=== PATIENT | female | born 1985 | race Caucasian/White ===

== ENCOUNTER 2016-06-03 05:41 | Outpatient (CLI) | payer OTHER ==
[~2016-06-03] VITALS: Ht 160 cm; Wt 62.6 kg
[~2016-06-03 05:41] MED LIST: B12/1TAB PO; CALC-794 PO; DCS100C PO; FOLI0.4T2 PO; HYDR-3720 PO; IBP800T PO; PREN-98 PO; SMT80CT PO; [UNRECOGNIZED DRUG - CODE] PO
[2016-06-03] MEDS ORDERED: birth control pill PO (13:04)
[2016-06-03] MEDS ORDERED: MULT-178 PO (13:06)
[2016-06-07] MEDS ORDERED: OXYC-202 PO (13:02)
== END 2016-06-03 13:13 ==
LOC: PREOP 05:41
PROVIDERS: ATTEND Obstetrics & Gynecology
DX: Z01.818 Encounter for other preprocedural examination (principal); N93.8 Other specified abnormal uterine and vaginal bleeding; D64.9 Anemia, unspecified

== ENCOUNTER 2016-06-07 11:06 | Day surgery (SDC) | payer OTHER ==
[~2016-06-07] VITALS: Ht 160 cm; Wt 62.6 kg
[~2016-06-07 11:06] MED LIST changes: +MULT-178 PO; +birth control pill PO
--- OUTSIDE RECORDS SUMMARY | 2016-06-07 11:09 | XMS REPORT | Continuity of Care Document ---
Author Author [facility] Organization 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 Medications Current Home Medications Medication Dose Units Route Directions Days/Qty Instructions Start Date Calcium Carb & Cit/Vitamin D3 1 Each 1 Each Oral Daily 06/30/13 B12/Levomefolate Calcium/B-6 1 Each 1 Each Oral Daily 06/30/13 [ Control Pill] 1 Tab Oral Daily 06/03/16 Multivitamin 1 Each 1 Each Oral Daily 06/03/16 Past Home Medications Medication Directions Ordered Status Vit37/Iron/Folic Acid 1 Each Tab.chew, 1 Each Oral Daily 06/30/13 Discontinued Folic Acid 0.4 Mg Tablet, 1000 Mcg Oral Daily 06/30/13 Discontinued Terbutaline Sulfate 2.5 Mg Tab, 2.5 Mg Oral Give Every 4 Hrs On Schedule Discontinued Docusate Sodium 100 Mg Capsule, 1 Cap Oral Daily as needed for Constipation 07/17/13 Discontinued Acetaminophen/Hydrocodone Bitart ([place]) 1 Each Tablet, 1-2 Tab Oral Every 3 Hours as needed for Pain 07/17/13 Discontinued Ibuprofen 800 Mg Tablet, 1 Tab Oral Every 6 Hours as needed for Pain Discontinued Simethicone 80 Mg Chew, 80 Mg Oral Three Times A Day for Gas 07/19/13 Discontinued Social History Social History Problem Response Recorded Date/Time Alcohol Use Denies Use 07/16/2013 3:30pm Recreational Drug Use No 07/16/2013 3:30pm Recent Foreign Travel No 07/16/2013 3:30pm Recent Infectious Disease Exposure No 07/16/2013 3:30pm Hospitalization with Isolation Denies 07/20/2013 1:16am Sexually Transmitted Disease No 06/03/2016 1:01pm HIV/AIDS No 06/03/2016 1:01pm Smoking Status Former Smoker 06/03/2016 1:01pm Recent Hopitalizations No 06/03/2016 1:01pm Sexually Transmitted Disease No 06/03/2016 1:01pm Hospitalization with Isolation Denies 07/20/2013 1:16am Query Response Start Date Stop Date Smoking Status Former Smoker Hospital Discharge Instructions No hospital discharge instructions. Plan of Care Discharge Date 06/03/16 1:13pm Prescriptions See Medication Section Functional Status No functional status results. Allergies, Adverse Reactions, Alerts No known allergies. Immunizations No immunization records. Vital Signs Acute Vital Signs Vital Response Date/Time Height (Feet) 5 feet 06/03/2016 12:59pm Height (Inches) 3.00 inches 06/03/2016 12:59pm Height (Calculated Centimeters) 160.686152 cm 06/03/2016 12:59pm Weight (Pounds) 138 pounds 06/03/2016 12:59pm Weight (Ounces) 0.0 oz 06/03/2016 12:59pm Weight (Calculated Grams) 93482.75 gm 06/03/2016 12:59pm Weight (Calculated Kilograms) 62.957727 kilograms 06/03/2016 12:59pm Calculated BMI 24.5 06/03/2016 12:59pm Results No known relevant diagnostic tests, laboratory data and/or discharge summary. Procedures No known history of procedures. Encounters Encounter Location Arrival/Admit Date Discharge/Depart Date Attending Provider Departed Clinic [facility] 06/03/16 5:41am 06/03/16 1: 13pm ALBERT GONZALEZ MD
--- OUTSIDE RECORDS SUMMARY | 2016-06-07 11:10 | XMS REPORT | Continuity of Care Document ---
Author Author [facility] Organization [facility] Address Unknown Phone Unavailable Care Team Providers Care Postie Name Role Phone NITA JANSNE MD PCP Insurance Providers Payer Name Policy Number Subscriber Name Relationship [facility] [id number] Misty Dawson Self / Same As Patient [...] needed for Constipation 07/17/13 Discontinued Acetaminophen/Hydrocodone Bitart ([place]) 1 Each Tablet, 1-2 Tab Oral Every [...] 3.00 inches 06/03/2016 12:59pm Height (Calculated Centimeters) 160.585764 cm 06/03/2016 12:59pm Weight (Pounds) 138 pounds 06/03/2016 12:59pm Weight (Ounces) 0.0 oz 06/03/2016 12:59pm Weight (Calculated Grams) 01451.75 gm 06/03/2016 12:59pm Weight (Calculated Kilograms) 62.181086 kilograms 06/03/2016 12:59pm Calculated BMI 24.5 06/03/2016 12:59pm Results No known relevant diagnostic tests, laboratory data and/or discharge summary. Procedures No known history of procedures. Encounters Encounter Location Arrival/Admit Date Discharge/Depart Date Attending Provider Departed Clinic [facility] 06/03/16 5:41am 06/03/16 1: 13pm ALBERT GONZALEZ MD
[2016-06-07] MEDS ORDERED: ceFAZolin 1 GM/NS 50 ML IVPB IV ONE ×2 (11:30)
[2016-06-07] MEDS ORDERED: LACTATED RINGERS 1,000 ML IV PRN (11:41)
[2016-06-07] MEDS ORDERED: MIDAZOLAM 2 MG/2 ML (VERSED) VIAL IV ONE (11:45)
[2016-06-07 12:07] LABS: BASOPHILS # (AUTO) 0.1 10^3/uL (0.0-0.1); BASOPHILS % (AUTO) 1 % (0-10); EOSINOPHILS % (AUTO) 0 % (0-10); LYMPHOCYTES # (AUTO) 3.4 X 10^3 (1.0-4.0); LYMPHOCYTES % (AUTO) 37 % (12-44); MEAN CORPUSCULAR HEMOGLOBIN 30 PG (25-34); MEAN CORPUSCULAR HGB CONC 33 G/DL (32-36); MEAN CORPUSCULAR VOLUME 90 FL (80-99); MEAN PLATELET VOLUME 10.1 FL (7.4-10.4); MONOCYTES # (AUTO) 0.5 X 10^3 (0.0-1.0); MONOCYTES % (AUTO) 5 % (0-12); NEUTROPHILS # (AUTO) 5.3 X 10^3 (1.8-7.8); NEUTROPHILS % (AUTO) 58 % (42-75); PLATELET COUNT 268 10^3/uL (130-400); WHITE BLOOD COUNT 9.3 10^3/uL (4.3-11.0)
[2016-06-07] MEDS ORDERED: ONDANSETRON 4 MG/2 ML (SDV) Z0FRAN ONE (12:16)
[2016-06-07] MEDS ORDERED: LACTATED RINGERS 1,000 ML IV ONE (12:16)
[2016-06-07] MEDS ORDERED: LIDOCAINE PF 2% 10 ML (XYLOCAINE) AMP ONE (12:16)
[2016-06-07] MEDS ORDERED: proPOfol 200 MG/20 ML (DIPRIVAN) VIAL IV ONE (12:16)
[2016-06-07] MEDS ORDERED: fentaNYL INJECTION 100 MCG/2 ML AMP ONE (12:17)
[2016-06-07] MEDS ORDERED: MIDAZOLAM 2 MG/2 ML (VERSED) VIAL ONE (12:17)
[2016-06-07] MEDS ORDERED: SEVOFLURANE (ULTANE) 15 ML INHAL SOLN ONE ×2 (12:19→13:32)
[2016-06-07] MEDS ORDERED: ESTROGENS CONJ IV 25 MG/5 ML (PREMARIN) VIAL IVP ONE (13:00)
[2016-06-07] MEDS ORDERED: PROMETHAZINE INJ 25 MG/ML (PHENERGAN) AMP IM ONE (13:00)
[2016-06-07] MEDS ORDERED: ONDANSETRON 4 MG/2 ML (SDV) Z0FRAN IVP PRN ×2 (13:00→14:00)
[2016-06-07] MEDS ORDERED: D5 LR IV SOLUTION 1,000 ML IV SCH (13:00)
[2016-06-07] MEDS ORDERED: MEPERIDINE (DEMEROL) INJ 100 MG/ML IM ONE (13:00)
[2016-06-07] MEDS ORDERED: oxyCODONE/APAP 10/325MG (PERCOCET 10) TABLET PO PRN (13:00)
[2016-06-07] MEDS ORDERED: KETOROLAC 30 MG/ML VIAL IVP ONE (13:00)
--- NOTE | 2016-06-07 13:00 | Progress Note-Pre Operative ---
Pre-Operative Progress Note H&P Reviewed The H&P was reviewed, patient examined and no changes noted. Date H&P Reviewed: Jun 07, 2016 Time H&P Reviewed: 13:00 Pre-Operative Diagnosis: dysfunctional uterine bleeding/intrauterine mass ALBERT GONZALEZ MD Jun 07, 2016 1:00 pm
[2016-06-07] MEDS ORDERED: OXYC-202 PO (13:02)
--- NOTE | 2016-06-07 13:04 | Discharge Instructions ---
Discharge Instructions Discharge Medications New, Converted or Re-Newed RX: RX on Chart Patient Instructions Patient Instructions: as directed Return to The Hospital For: as directed Activity & Diet Discharge Diet: No Restrictions Activity as Tolerated: Yes Orders-Post D/C & Referrals Follow Up Appt: Call to make follow up appt. for patient in 2 weeks. Activity: Rest for 24 hours, than as tolerated. Diet: As tolerated-Clear Liquids only if nauseated. May shower or tub bathe as desired. No driving for 24 hours, no alcoholic beverages for 24 hours, and nothing per vagina (no tampons, douching, or intercourse) for 2 weeks. Patient to return to the clinic as soon as possible for: Temperature greater than 101F, Severe Pain, Foul discharge from incision or vagina, Excessive Bleeding (more than a period). ALBERT GONZALEZ MD Jun 07, 2016 1:04 pm
[2016-06-07] MEDS ORDERED: ESTROGENS CONJ IV 25 MG/5 ML (PREMARIN) VIAL ONE (13:31)
[2016-06-07] MEDS ORDERED: WATER (STERILE) FOR INJECTION 10 ML ONE (13:31)
[2016-06-07] MEDS ORDERED: KETOROLAC 30 MG/ML VIAL ONE (13:31)
[2016-06-07] MEDS ORDERED: morphine INJ 10 MG/ML 1ML (SYR OR VIAL) ONE (13:32)
[2016-06-07] MEDS ORDERED: morphine INJ 10 MG/ML 1ML (SYR OR VIAL) IVP PRN (14:00)
[2016-06-07] MEDS ORDERED: HYDROmorphone (DILAUDID) 2 MG/ML VIAL IVP PRN (14:00)
[2016-06-07] MEDS ORDERED: MEPERIDINE (DEMEROL) INJ 50 MG/ML IVP PRN (14:00)
[2016-06-07] MEDS ORDERED: PROMETHAZINE INJ 25 MG/ML (PHENERGAN) AMP IVP PRN (14:00)
[2016-06-07 14:25] VITALS: BP 123/69
[2016-06-07 15:00] VITALS: BP 119/62
[2016-06-07 15:30] VITALS: BP 120/61
[2016-06-07 15:50] VITALS: BP 120/61
--- NOTE | 2016-06-10 11:01 | OPERATIVE REPORT ---
PROCEDURE PHYSICIAN: ALBERT GONZALEZ DATE OF PROCEDURE: 06/07/2016 PREOPERATIVE DIAGNOSES: 1. Dysfunctional uterine bleeding. 2. Intrauterine mass. POSTOPERATIVE DIAGNOSES: 1. Dysfunctional uterine bleeding. 2. Intrauterine mass. 3. Pathology pending. OPERATIVE PROCEDURE: Hysteroscopically directed intrauterine biopsy with D&C. OPERATIVE DESCRIPTION: With the patient in the supine position, under satisfactory general anesthesia, she was repositioned in dorsal lithotomy position in the Ace stirrups and prepped and draped usual fashion for vaginal surgery. The urinary bladder was emptied via straight catheter. Weighted speculum was placed in posterior fornix of the vagina. Cervix exposed and grasped anteriorly with single-tooth tenaculum. The uterus was sounded to 9.5 cm of uterine sound. The cervix was then serially dilated with Kvng dilators to accommodate a hysteroscope, which was introduced and using LR as a distending medium, the endometrial cavity was examined. There was a polypoid strip of tissue emanating from just distal to the right tubal ostium. There was a fleshy appearing mass in the uterine cavity that was removed intact. This almost appeared to have mucoid appearance versus solid tissue but that was sent to pathology separately. The strip of polypoid tissue was biopsied directly off from the right side of the endometrial cavity. This was sent separately. The endometrial cavity was then sharply curettaged in all 4 quadrants to a good uterine cry. That tissue was sent to pathology separately as endometrial curettings. The hysteroscope was reintroduced, the endometrial cavity examined. There was no significant bleeding. There was no remaining abnormal pathology. Both tubal ostia had been seen and were normal appearing and patent. The midportion of the fundus of the uterine cavity appear that there may have been a submucosal fibroid. This was biopsied directly taking several bites of tissue from that area. No bleeding was noted and this had a fibrous appearance to that tissue. That tissue was sent as a separate specimen to pathology as well. With the procedure complete, the hysteroscope was removed as was the tenaculum. There was no bleeding from the puncture site. There was no bleeding from the cervical os. Sponge and needle counts were correct at this point. Estimated blood loss was minimal. A total of 850 mL of LR was used as distending medium, 800 mL was recovered. The patient tolerated the procedure well, and was uneventfully awakened from general anesthesia and transferred to recovery room in stable condition with plans for discharge home PAR. Job ID: [id number] Dictated Date: 06/07/2016 13:36:33 Business Law Teacher Date: 06/10/2016 10:46:22 / cyndie
== END 2016-06-07 15:50 | disposition home or self-care (01) ==
LOC: SDC 11:06
PROVIDERS: ATTEND Obstetrics & Gynecology
DX: N92.0 Excessive and frequent menstruation with regular cycle (principal); N85.9 Noninflammatory disorder of uterus, unspecified
CPT/HCPCS: 36415; 84703; 85025; 87081; 88305

== ENCOUNTER 2019-06-17 16:22 | Inpatient (IN) | payer OTHER ==
[~2019-06-17] VITALS: Ht 160 cm; Wt 66.7 kg
[~2019-06-17 16:22] MED LIST changes: +OXYC1TAB12 PO
[2019-06-17] MEDS ORDERED: PRED10TA22 PO (16:44)
[2019-06-17] MEDS ORDERED: CEFU500T63 PO (16:44)
--- NOTE | 2019-06-17 16:44 | ED EENT ---
History of Present Illness General Chief Complaint: Oral/Throat Problems Stated Complaint: TONSILS SWOLLEN Nursing Triage Note: SENT HERE FROM [facility] OFFICE WITH POSSIBLE ABSCESS ON TONSIL. FLU AND STEP NEG. RECIEVED A STEROID SHOT AND AN ABX SHOT YESTERDAY. Source: patient Exam Limitations: no limitations History of Present Illness Date Seen by Provider: Jun 17, 2019 Time Seen by Provider: 16:39 Initial Comments To ER with tonsillar swelling. She was recently ill with the flu, states that her tonsils always get very large. She had persistent tonsillar enlargement and sore throat, went to Dr. Sweet's office yesterday and received a shot of steroids and antibiotics. She is on azithromycin. She reported minimal improvement, call their office today and was advised to come to the emergency room due to concern for peritonsillar abscess. Timing/Duration: gradual Severity: moderate Location: throat Associated Symptoms: sore throat Allergies and Home Medications Allergies Coded Allergies: No Known Drug Allergies (Unverified , 06/30/13) Home Medications B12/Levomefolate Calcium/B-6 1 Each Tablet, 1 EACH PO DAILY, (Reported) Calcium Carb & Cit/Vitamin D3 1 Each Tablet.er, 1 EACH PO DAILY, (Reported) Cefuroxime Axetil 500 Mg Tablet, 500 MG PO BID Prescribed by: AZRA JACQUES on 06/17/191643 Multivitamin 1 Each Tablet, 1 EACH PO DAILY, (Reported) Oxycodone HCl/Acetaminophen 1 Each Tablet, 1-2 TAB PO Q4H PRN for PAIN Prescribed by: ALBERT GARCIA on 06/07/16 1302 Prednisone 10 Mg Tab.ds.pk, 10 MG PO DAILY Take 6 tabs(60mg)daily,decrease by 1 tab(10MG)daily. Prescribed by: AZRA JACQUES on 06/17/19 1644 [ control pill] , 1 TAB PO DAILY, (Reported) Patient Home Medication List Home Medication List Reviewed: Yes Review of Systems Review of Systems Constitutional: see HPI; No chills, No fever Eyes: No Symptoms Reported Ears: No Symptoms Reported Nose: no symptoms reported Throat: see HPI, swelling, painful swallowing Respiratory: no symptoms reported Cardiovascular: no symptoms reported Musculoskeletal: no symptoms reported Past Gpvpfyc-Djxpyj-Fbvzcs Hx Patient Social History Alcohol Use: Occasionally Uses Alcohol Beverage of Choice: Wine Recreational Drug Use: No Smoking Status: Never a Smoker Former Smoker, Quit: Jun 03, 2004 Recent Foreign Travel: No Contact w/Someone Who Travel: No Recent Infectious Disease Expo: No Recent Hopitalizations: No Physical Abuse: No Sexual Abuse: No Mistreated: No Fear: No Immunizations Up To Date Date of Influenza Vaccine: Feb 02, 2016 Seasonal Allergies Seasonal Allergies: Yes Past Medical History Surgeries: Yes Section Respiratory: No Cardiac: No Neurological: Yes (seizure x1 when 15 yrs old, none since) Seizure Disorder Reproductive Disorders: Yes Female Reproductive Disorders: Denies Sexually Transmitted Disease: No HIV/AIDS: No Gastrointestinal: No Musculoskeletal: No Endocrine: No Loss of Vision: Denies Hearing Impairment: Denies Cancer: No Psychosocial: No Integumentary: No Blood Disorders: No Adverse Reaction/Blood Tranf: No Family Medical History Alcoholism 03 FATHER Headache 03 MOTHER Hearing loss Grandparents (Maternal Grandfather) History of drug abuse 09 SISTER (Previous Meth, Marijuana, Prescription Pills. Clean approx 1 year.) Kidney disease Grandparents (Maternal Grandmother-Dyalisis) Prostate cancer Grandparents (Maternal Grandfather- Prostate or Colon?) Psychotic disorder 03 MOTHER (Depression, Anxiety) 09 SISTER (Anxiety, Depression ) Grandparents (Paternal Grandmother- Anxiety) Stroke Grandparents (Maternal Grandmother-2 or 3 strokes) No Family History of: Abdominal aortic aneurysm [place]'s disease Aphasia Cancer Cancer of colon Cataract Chest pain Congenital heart disease Congestive heart failure Cystic fibrosis Dementia Dysphagia Family history: Allergy Family history: Alzheimer's disease Family history: Arthritis Family history: Asthma Family history: Breast disease Family history: Cardiovascular disease Family history: Coronary thrombosis Family history: Diabetes mellitus Family history: Gastrointestinal disease Family history: Glaucoma Family history: Hypertension Family history: Osteoporosis Family history: Thyroid disorder Heart disease Hereditary disease History of - anemia History of - disorder History of - respiratory disease Human immunodeficiency virus (HIV) seropositivity Hypercholesterolemia Infertile Malignant neoplasm of lung Myocardial infarction Parkinson's disease Seizure disorder Tuberculosis Visual impairment Physical Exam Vital Signs Vital Signs - First Documented 06/17/19 16:29 Temp 36.8 Pulse 101 Resp 16 B/P (MAP) 133/83 (100) Pulse Ox 98 O2 Delivery Room Air Height, Weight, BMI Height: 5'3.00" Weight: 138lbs. 0.0oz. 62.138181du; 26.00 BMI Method: General Appearance: WD/WN, no apparent distress, other (no distress, swallows her own secretions no stridor.) Eyes: bilateral eye normal inspection, bilateral eye PERRL, bilateral eye EOMI Ears: bilateral ear auricle normal, bilateral ear canal normal, bilateral ear TM normal Nose: normal inspection; No active bleeding Mouth/Throat: normal mouth inspection, tonsillar swelling (asymmetric right tonsillar enlargement. There is no evidence of a peritonsillar abscess based on clinical exam, there is no uvular deviation or enlargement or cellulitis of the peritonsillar tissues. There is no exudate on the tonsil itself.), trismus Neck: non-tender, full range of motion Respiratory: no respiratory distress, no accessory muscle use Gastrointestinal: normal bowel sounds, soft Neurologic/Psychiatric: alert, normal mood/affect, oriented x 3 Skin: normal color, warm/dry Progress/Results/Core Measures Results/Orders Lab Results Laboratory Tests Test 06/17/19 16:47 Range/Units White Blood Count 26.6 H 4.3-11.0 10^3/uL Red Blood Count 4.73 4.35-5.85 10^6/uL Hemoglobin 13.5 11.5-16.0 G/DL Hematocrit 41 35-52 % Mean Corpuscular Volume 87 80-99 FL Mean Corpuscular Hemoglobin 29 25-34 PG Mean Corpuscular Hemoglobin Concent 33 32-36 G/DL Red Cell Distribution Width 13.5 10.0-14.5 % Platelet Count 510 H 130-400 10^3/uL Mean Platelet Volume 9.3 7.4-10.4 FL Neutrophils (%) (Auto) 81 H 42-75 % Lymphocytes (%) (Auto) 13 12-44 % Monocytes (%) (Auto) 6 0-12 % Eosinophils (%) (Auto) 0 0-10 % Basophils (%) (Auto) 0 0-10 % Neutrophils # (Auto) 21.5 H 1.8-7.8 X 10^3 Lymphocytes # (Auto) 3.4 1.0-4.0 X 10^3 Monocytes # (Auto) 1.5 H 0.0-1.0 X 10^3 Eosinophils # (Auto) 0.1 0.0-0.3 10^3/uL Basophils # (Auto) 0.0 0.0-0.1 10^3/uL Neutrophils % (Manual) 83 % Lymphocytes % (Manual) 13 % Monocytes % (Manual) 4 % Eosinophils % (Manual) 0 % Basophils % (Manual) 0 % Band Neutrophils 0 % Blood Morphology Comment NORMAL Serum Test, Qualitative NEGATIVE NEGATIVE My Orders Orders - AZRA JACQUES APRN Ed Iv/Invasive Line Start (06/17/19 16:38) Cbc With Automated Diff (06/17/19 16:38) Hcg,Qualitative Serum (06/17/19 16:38) Ct Neck (Soft Tissue) W (06/17/19 16:38) Clindamycin 900 Mg/50 Ml Ivpb (Cleocin P (06/17/19 16:45) Methylprednisolone Sod Succ (Solu-Medrol (06/17/19 16:45) Manual Differential (06/17/19 16:47) Iohexol Injection (Omnipaque 350 Mg/Ml 1 (06/17/19 17:30) Received Contrast (Hold Metformin- Contr (06/17/19 17:30) Sodium Chloride Flush (Catheter Flush Sy (06/17/19 17:30) Medications Given in ED Current Medications Medications Dose Ordered Sig/Shreyas Route Start Time Stop Time Status Last Admin Dose Admin Clindamycin Phosphate/Dextrose 50 ml @ 100 mls/hr ONCE ONCE IV 06/17/19 16:45 06/17/19 17:14 DC 06/17/19 17:08 100 MLS/HR Iohexol 75 ml ONCE ONCE IV 06/17/19 17:30 06/17/19 17:31 DC 06/17/19 17:46 75 ML Methylprednisolone Sodium Succinate 125 mg ONCE ONCE IVP 06/17/19 16:45 06/17/19 16:46 DC 06/17/19 17:08 125 MG Sodium Chloride 10 ml NEEDED PRN IV 06/17/19 17:30 06/17/19 17:46 10 ML Vital Signs/I&O 06/17/19 16:29 Temp 36.8 Pulse 101 Resp 16 B/P (MAP) 133/83 (100) Pulse Ox 98 O2 Delivery Room Air Blood Pressure Mean: 100 Departure Communication (Admissions) Time/Spoke to Admitting Phy: 18:[address] Hickey, he would recommend Decadron and cefuroxime. He could see this patient tomorrow. Spoke with Dr. Kennedy who is the patient's primary care provider, patient does have cats, there was some concern of a cat Scratch disease based on clinical exam which would be supported by the findings. As such I'll continue the azithromycin. We will admit. Impression Primary Impression: lymphadenopathy right neck Disposition: ADMITTED INPATIENT Condition: Stable Admissions Decision to Admit Reason: Admit from ER (General) Decision to Admit/Date: Jun 17, 2019 Time/Decision to Admit Time: 18:18 Departure-Patient Inst. Decision time for Depature: 16:43 Referrals: NITA JANSEN MD (PCP) Primary Care Physician JEFF HICKEY MD Patient Instructions: NO INSTRUCTIONS GIVEN Add. Discharge Instructions: 1. Steroids and antibiotics as directed. You can stop the azithromycin. Call Dr. Hickey's office for an appointment for follow-up. Return to ER for any worsening. If the steroids cause you insomnia, you can take Unisom ejkx-jqh-dusptia or Benadryl. All discharge instructions reviewed with patient and/or family. Voiced understanding. Scripts Prednisone (Prednisone) 10 Mg Tab.ds.pk 10 MG PO DAILY, #21 EA Take 6 tabs(60mg)daily,decrease by 1 tab(10MG)daily. Prov: AZRA JACQUES APRN 06/17/19 Cefuroxime Axetil (Cefuroxime) 500 Mg Tablet 500 MG PO BID, #14 TAB Prov: AZRA JACQUES APRN 06/17/19 Copy Copies To 1: JEFF HICKEY MD, PETER J APRN Jun 17, 2019 16:44
[2019-06-17] MEDS ORDERED: methylPREDNISolone 125 MG (Solu-MEDROL) VIAL IVP ONE (16:45)
[2019-06-17] MEDS ORDERED: CLINDAMYCIN 900 MG/50 ML IVPB 50 ML IV ONE (16:45)
[2019-06-17 16:52] LABS: BASOPHILS % (AUTO) 0 % (0-10); EOSINOPHILS # (AUTO) 0.1 10^3/uL (0.0-0.3); EOSINOPHILS % (AUTO) 0 % (0-10); HEMATOCRIT 41 % (35-52); HEMOGLOBIN 13.5 G/DL (11.5-16.0); LYMPHOCYTES # (AUTO) 3.4 X 10^3 (1.0-4.0); LYMPHOCYTES % (AUTO) 13 % (12-44); MEAN CORPUSCULAR HEMOGLOBIN 29 PG (25-34); MEAN CORPUSCULAR HGB CONC 33 G/DL (32-36); MEAN CORPUSCULAR VOLUME 87 FL (80-99); MEAN PLATELET VOLUME 9.3 FL (7.4-10.4); MONOCYTES # (AUTO) 1.5 X 10^3 (0.0-1.0); MONOCYTES % (AUTO) 6 % (0-12); NEUTROPHILS # (AUTO) 21.5 X 10^3 (1.8-7.8); NEUTROPHILS % (AUTO) 81 % (42-75); PLATELET COUNT 510 10^3/uL (130-400); RED CELL DISTRIBUTION WIDTH 13.5 % (10.0-14.5); WHITE BLOOD COUNT 26.6 10^3/uL (4.3-11.0)
[2019-06-17 17:13] LABS: BAND NEUTROPHILS 0 %; BASOPHILS % (MANUAL) 0 %; EOSINOPHILS % (MANUAL) 0 %; LYMPHOCYTES % (MANUAL) 13 %; MONOCYTES % (MANUAL) 4 %; NEUTROPHILS % (MANUAL) 83 %; RBC MORPH NORMAL
[2019-06-17] MEDS ORDERED: IOHEXOL 350 MG/ML 100 ML (OMNIPAQUE 350) VIAL IV ONE (17:30)
[2019-06-17] MEDS ORDERED: CATHETER FLUSH 10 ML SYR IV PRN (17:30)
[2019-06-17] MEDS ORDERED: HOLD METFORMIN - RECEIVED CONTRAST 20 ML VIAL IV SCH (17:30)
--- NOTE | 2019-06-17 18:03 | Diagnostic Imaging Report ---
CLINICAL INDICATION: Patient with right-sided neck swelling difficulty turning head side to side. EXAM: Axial CT scan of the neck soft tissue performed with 75 cc of Omnipaque 350 IV contrast. Coronal and sagittal reformatted images were created. All CT scans use one or more of the following dose optimizing techniques: automated exposure control, MA and/or KvP adjustment based on patient size and exam type or iterative reconstruction. COMPARISON: None. FINDINGS: There is lymphadenopathy involving the right side of the neck with the largest lymph node measuring 1.8 cm x 1.9 cm in greatest axial dimension and measures 1.9 cm in greatest craniocaudal dimension, located in the right level 2B region. There is fat stranding adjacent to this lymph node with ill-defined adjacent fat borders. There are central low signal changes within this lymph node concerning for a suppurative lymph node. Other consideration would include a right neck soft tissue abscess. There is markedly/severe encroachment upon the proximal right jugular vein with near occlusion noted at the C3 level due to this cystic lymph node. There is no definite jugular vein thrombosis seen. The next largest lymph node measures 1.5 cm x 1.4 cm in the right II/III level region. There is also mild fat stranding abutting the right parapharyngeal fat region. The fat stranding extends from the level of the thyroid gland all the way up to the mastoid region. There is mild prominence of the nasopharynx, and bilateral palatine regions which may just be reactive. There is no mass in the nasopharynx, oropharynx, hypopharynx, and laryngeal soft tissue structure regions. Visualized portions of the tongue, oral cavity, and sublingual spaces are grossly unremarkable. The salivary glands and thyroid glands are unremarkable. There is mild atelectasis involving the visualized upper lung babcock. Limited visualization of intracranial structures is unremarkable. There is moderate amount of mucosal thickening involving the left maxillary sinus with air-fluid level. There is nndj-tp-cbiqfegi mucosal thickening involving the right maxillary sinus. Mastoid air cells are clear. Cervical spine shows no significant abnormality. IMPRESSION: 1: There is right cervical lymphadenopathy with adjacent fat stranding extending along the majority of the length to the right side of the neck. There is a peripherally enhancing fluid collection in the right level IIb region suspected to represent a necrotic or suppurative lymph node. Given the amount of soft tissue swelling involving the right side of the neck, suppurative lymph node is favored. There is associated severe stenosis and near occlusion of the right jugular vein adjacent to this cystic lymph node, with no intravascular thrombus seen. These findings are concerning for infectious or inflammatory process. Given the findings, etiology such as Cat-scratch disease or tuberculosis should be excluded. Although there is no definitive head and neck mass seen on the CT scan, a necrotic lymph node from metastatic disease should be excluded, although suspected to be less likely. 2: The airway is patent. 3: Paranasal sinus disease. Dictated by: Dictated on workstation # [id number]
--- NOTE | 2019-06-17 19:15 | NUR ---
MISTY NEWSOME admitted to room 416-1, with an admitting diagnosis of Lymphadenopathy R Neck; Leuokocytosis, on 06/17/19 from ED via wheelchair, accompanied by staff.MISTY NEWSOME introduced to surroundings, call light, bed controls, phone, TV, temperature control, lights, meal times, smoking policy, visitor policy, side rail policy, bathrooms and showers. Patient Rights given to patient in the handbook. MISTY NEWSOME verbalizes understanding that [facility] is not responsible for the loss or damage to any personal effects or valuables that are kept in the patients posession during their hospitalization.
[2019-06-17] MEDS ORDERED: fentaNYL INJECTION 100 MCG/2 ML AMP IV PRN (19:30)
[2019-06-17] MEDS ORDERED: CEFUROXIME 1.5 GM (ZINACEF) VIAL ONE (19:36)
[2019-06-17] MEDS ORDERED: WATER (STERILE) FOR INJECTION 20 ML ONE (19:37)
[2019-06-17] MEDS: NS IV 1000 ML 1,000 ML IV SCH (19:49)
[2019-06-17] MEDS: AZITHROMYCIN 250 MG TAB (ZITHROMAX) PO SCH (19:50)
[2019-06-17] MEDS: CEFUROXIME 1,500 MG/SWFI 15 ML IV PUSH IV SCH ×2 (19:51)
[2019-06-17] MEDS: DEXAMETHASONE 10 MG/ML (DECADRON) 1 ML VIAL IV SCH (19:52)
[2019-06-17 20:00] VITALS: BP 118/78
[2019-06-17 21:00] VITALS: BP 118/78
[2019-06-17 23:55] VITALS: BP 124/69
[2019-06-18] MEDS: NS IV 1000 ML 1,000 ML IV SCH ×4 (02:41→23:52)
[2019-06-18] MEDS: DEXAMETHASONE 10 MG/ML (DECADRON) 1 ML VIAL IV SCH ×3 (03:35→20:15)
[2019-06-18] MEDS: CEFUROXIME 1,500 MG/SWFI 15 ML IV PUSH IV SCH ×6 (03:36→20:15)
[2019-06-18 04:20] VITALS: BP 112/65
[2019-06-18 05:39] LABS: BASOPHILS % (AUTO) 0 % (0-10); EOSINOPHILS % (AUTO) 0 % (0-10); HEMATOCRIT 38 % (35-52); HEMOGLOBIN 12.3 G/DL (11.5-16.0); LYMPHOCYTES # (AUTO) 1.1 X 10^3 (1.0-4.0); LYMPHOCYTES % (AUTO) 6 % (12-44); MEAN CORPUSCULAR HEMOGLOBIN 29 PG (25-34); MEAN CORPUSCULAR HGB CONC 33 G/DL (32-36); MEAN CORPUSCULAR VOLUME 87 FL (80-99); MEAN PLATELET VOLUME 9.6 FL (7.4-10.4); MONOCYTES # (AUTO) 0.2 X 10^3 (0.0-1.0); MONOCYTES % (AUTO) 1 % (0-12); NEUTROPHILS % (AUTO) 93 % (42-75); PLATELET COUNT 425 10^3/uL (130-400); RED CELL DISTRIBUTION WIDTH 13.4 % (10.0-14.5); WHITE BLOOD COUNT 19.4 10^3/uL (4.3-11.0)
[2019-06-18 05:58] LABS: ALANINE AMINOTRANSFERASE 14 U/L (0-55); ALBUMIN 3.4 GM/DL (3.2-4.5); ALKALINE PHOSPHATASE 89 U/L (40-136); BILIRUBIN,TOTAL 0.2 MG/DL (0.1-1.0); BUN/CREATININE RATIO 10; CALCIUM 8.7 MG/DL (8.5-10.1); CARBON DIOXIDE 21 MMOL/L (21-32); CHLORIDE 108 MMOL/L (98-107); CREATININE SERUM 0.61 MG/DL (0.60-1.30); GFR ESTIMATED > 60; GLUCOSE 159 MG/DL (70-105); POTASSIUM 4.1 MMOL/L (3.6-5.0); SODIUM 138 MMOL/L (135-145); TOTAL PROTEIN 6.7 GM/DL (6.4-8.2)
--- NOTE | 2019-06-18 07:03 | Progress Note ---
Standard Progress Note Progress Notes/Assess & Plan Date Seen by a Provider: Jun 18, 2019 Time Seen by a Provider: 06:30 Progress/Assessment & Plan ENT-Sun-06/18-630 Jesus seen and evaluated ct reviewed wbc this am 19.4 which is down from 26 yesterday evening patient states she is feeling better and has les sswelling 4 day history of uniltaeral right throat pain which was progressive exam-still with swollen nodes along right neck-overall she reports less tenderness though no pain lower in neck today would recommend at least 48 hours of IV antibiotics and steroids-woudl like to see wbc back to near normal before home would send home on ceftin and a 9 day pred taper will follow up on sat amand will dictate a full consult note Final Diagnosis Right neck cervical adenitis-severe JEFF CASTILLO MD Jun 18, 2019 07:02
[2019-06-18 08:00] VITALS: BP 128/85
[2019-06-18] MEDS ORDERED: PSEU30TA35 PO (08:30)
[2019-06-18] MEDS ORDERED: CHOL200025 PO (08:30)
[2019-06-18] MEDS ORDERED: AZIT250T12 PO (08:30)
[2019-06-18] MEDS ORDERED: ALPR0.5T7 PO (08:30)
[2019-06-18] MEDS ORDERED: MAGN500C15 PO (08:30)
[2019-06-18] MEDS ORDERED: ETHY1TAB PO (08:30)
[2019-06-18] MEDS ORDERED: ASPIRIN 81 MG CHEW (CHILDREN'S ASA) PO NR (09:30)
[2019-06-18] MEDS ORDERED: ALPRAZolam 0.25 MG (XANAX) TAB PO PRN (09:45)
[2019-06-18 12:00] VITALS: BP 121/76
[2019-06-18 16:57] VITALS: BP 117/71
[2019-06-18 20:00] VITALS: BP 135/65
--- NOTE | 2019-06-18 20:09 | History & Physical ---
History of Present Illness History of Present Illness Reason for visit/HPI This is a 33 year old female who had influenza B approximately 1 week ago. She had lymph node enlargement this week and was seen and tested for strep which was negative. However, due to the significant lymphadenopathy and tonsillar exudate as well as cat exposure it was decided to give her a steroid shot and start her on zithromax. Despite the medications, she had worsening swelling of her lymph nodes with worsening pain so she was sent to the emergency room to be evaluated to rule out abscess. No abscess was found but she was found to have enlarged lymph nodes with one encroaching on the right jugular vein. It was decided to admit her for IV antibiotics, IV steroids and ENT evaluation. Date of Admission Jun 17, 2019 at 18:12 Date Seen by a Provider: Jun 18, 2019 Time Seen by a Provider: 09:15 I consulted on this patient on 06/18/19 20:02 Attending Physician Alison Gallo DO Admitting Physician Alison Gallo DO Consult Allergies and Home Medications Allergies Coded Allergies: No Known Drug Allergies (Unverified , 06/30/13) Home Medications Alprazolam 0.5 Mg Tablet, 0.5 MG PO BID PRN for ANXIETY, (Reported) Azithromycin 250 Mg Tablet, PO UD, (Reported) 5 DAY SUPPLY FILLED 06-16-19 Cholecalciferol (Vitamin D3) 2,000 Unit Tablet, 2,000 UNIT PO DAILY, (Reported) Ethynodiol D-Ethinyl Estradiol 1 Each Tablet, 1 TAB PO DAILY, (Reported) Magnesium Oxide 500 Mg Capsule, 500 MG PO DAILY, (Reported) Multivitamin 1 Each Tablet, 1 TAB PO DAILY, (Reported) Pseudoephedrine HCl 30 Mg Tablet, 30-60 MG PO Q6H PRN for CONGESTION, (Reported) Patient Home Medication List Home Medication List Reviewed: Yes Past Xarprgh-Krfgvx-Smifps Hx Past Med/Social Hx: Reviewed Nursing Past Med/Soc Hx Patient Social History Alcohol Use: Occasionally Uses Alcohol Beverage of Choice: Wine Recreational Drug Use: No Smoking Status: Never a Smoker Former Smoker, Quit: Jun 03, 2004 Recent Foreign Travel: No Contact w/other who traveled: No Recent Hopitalizations: No Recent Infectious Disease Expo: No Immunizations Up To Date Date of Influenza Vaccine: Jan 04, 2019 Seasonal Allergies Seasonal Allergies: Yes Past Medical History Surgeries: Section Neurological: Seizure Disorder Reproductive: Yes Sexually Transmitted Disease: No HIV/AIDS: No Female Reproductive Disorders: Denies Loss of Vision: Denies Hearing Impairment: Denies History of Blood Disorders: No Adverse Reaction to Blood [place]: No Family History Alcoholism 03 FATHER Headache 03 MOTHER Hearing loss Grandparents (Maternal Grandfather) History of drug abuse 09 SISTER (Previous Meth, Marijuana, Prescription Pills. Clean approx 1 year.) Kidney disease Grandparents (Maternal Grandmother-Dyalisis) Prostate cancer Grandparents (Maternal Grandfather- Prostate or Colon?) Psychotic disorder 03 MOTHER (Depression, Anxiety) 09 SISTER (Anxiety, Depression ) Grandparents (Paternal Grandmother- Anxiety) Stroke Grandparents (Maternal Grandmother-2 or 3 strokes) No Family History of: Abdominal aortic aneurysm Parrish's disease Aphasia Cancer Cancer of colon Cataract Chest pain Congenital heart disease Congestive heart failure Cystic fibrosis Dementia Dysphagia Family history: Allergy Family history: Alzheimer's disease Family history: Arthritis Family history: Asthma Family history: Breast disease Family history: Cardiovascular disease Family history: Coronary thrombosis Family history: Diabetes mellitus Family history: Gastrointestinal disease Family history: Glaucoma Family history: Hypertension Family history: Osteoporosis Family history: Thyroid disorder Heart disease Hereditary disease History of - anemia History of - disorder History of - respiratory disease Human immunodeficiency virus (HIV) seropositivity Hypercholesterolemia Infertile Malignant neoplasm of lung Myocardial infarction Parkinson's disease Seizure disorder Tuberculosis Visual impairment Review of Systems Constitutional: fever EENTM: throat pain, throat swelling Respiratory: No no symptoms reported, No see HPI, No cough, No dyspnea on exertion, No hemoptysis, No orthopnea, No phlegm, No short of breath, No stridor, No wheezing, No other Cardiovascular: No no symptoms reported, No see HPI, No chest pain, No edema, No Hx of Intervention, No palpitations, No syncope, No vascular heart diseas, No other Gastrointestinal: loss of appetite Genitourinary: No no symptoms reported, No see HPI, No decreased output, No discharge, No dysuria, No frequency, No hematuria, No hesitancy, No incontinence, No nocturia, No pain, No other Musculoskeletal: muscle stiffness Skin: No no symptoms reported, No see HPI, No change in color, No change in hair/nails, No dryness, No hx of skin cancer, No lesions, No lumps, No pruritus, No rash, No other Psychiatric/Neurological: Denies No Symptoms Reported, Denies See HPI, Denies Anxiety, Denies Depressed, Denies Emotional Problems, Denies Headache, Denies Numbness, Denies Paresthesia, Denies Pre-Existing Deficit, Denies Seizure, Denies Tingling, Denies Tremors, Denies Weakness, Denies Other Physical Exam Vital Signs Vital Signs - First Documented 06/17/19 16:29 Temp 36.8 Pulse 101 Resp 16 B/P (MAP) 133/83 (100) Pulse Ox 98 O2 Delivery Room Air Capillary Refill : Less Than 3 Seconds Height, Weight, BMI Height: 5'3.00" Weight: 138lbs. 0.0oz. 62.324226yv; 26.05 BMI Method: General Appearance: Mild Distress HEENT: TMs Normal, Pharyngeal Erythema, Tonsillar Enlargement (right) Neck: Supple, Lymphadenopathy (R), Tender Lateral (rigth) Respiratory: Lungs Clear Cardiovascular: Regular Rate, Rhythm Gastrointestinal: Normal Bowel Sounds, Non Tender, Soft Rectal: Deferred Back: No CVA Tenderness Extremity: Non Tender, No Calf Tenderness, No Pedal Edema Neurologic/Psychiatric: Alert, Oriented x3 Skin: Warm/Dry Comments Laboratory Tests 06/18/19 05:08: White Blood Count 19.4H, Red Blood Count 4.30L, Hemoglobin 12.3, Hematocrit 38, Mean Corpuscular Volume 87, Mean Corpuscular Hemoglobin 29, Mean Corpuscular Hemoglobin Concent 33, Red Cell Distribution Width 13.4, Platelet Count 425H, Mean Platelet Volume 9.6, Neutrophils (%) (Auto) 93H, Lymphocytes (%) (Auto) 6L, Monocytes (%) (Auto) 1, Eosinophils (%) (Auto) 0, Basophils (%) (Auto) 0, Neutrophils # (Auto) 18.0H, Lymphocytes # (Auto) 1.1, Monocytes # (Auto) 0.2, Eosinophils # (Auto) 0.0, Basophils # (Auto) 0.0, Sodium Level 138, Potassium Level 4.1, Chloride Level 108H, Carbon Dioxide Level 21, Anion Gap 9, Blood Urea Nitrogen 6L, Creatinine 0.61, Estimat Glomerular Filtration Rate > 60, BUN/Creatinine Ratio 10, Glucose Level 159H, Calcium Level 8.7, Corrected Calcium 9.2, Total Bilirubin 0.2, Aspartate Amino Transf (AST/SGOT) 10, Alanine Aminotransferase (ALT/SGPT) 14, Alkaline Phosphatase 89, Total Protein 6.7, Albumin 3.4 06/18/19 10:15: TB Test (QFT) Nil [Pending], TB Test (QFT) Mitogen Minus Nil [Pending], TB Test (QFT) Antigen Minus Nil 1 [Pending], TB Test (QFT) Antigen Minus Nil 2 [Pending], TB Test (QFT) Interpretation [Pending] Assessment/Plan Assessment and Plan 1. Acute Cervical Lymphadenitis--Severe--admit and cover with IV antibiotics and IV steroids, will check TB ronal and cat scratch titers Admission Diagnosis Admission Status: Inpatient Order (span 2 midnights) Reason for Inpatient Admission: Will need at least 48hrs of IV antibiotics and steroids Clinical Quality Measures DVT/VTE Risk/Contraindication: Risk Factor Score Per Nursin RFS Level Per Nursing on Admit: 1=Low/No VTE PPX ALISON GALLO DO Jun 18, 2019 20:09
[2019-06-18] MEDS: AZITHROMYCIN 250 MG TAB (ZITHROMAX) PO SCH (20:16)
[2019-06-18 23:45] VITALS: BP 125/76
[2019-06-19] MEDS: DEXAMETHASONE 10 MG/ML (DECADRON) 1 ML VIAL IV SCH (03:44)
[2019-06-19] MEDS: CEFUROXIME 1,500 MG/SWFI 15 ML IV PUSH IV SCH ×2 (03:44)
[2019-06-19 04:00] VITALS: BP 127/87
[2019-06-19 05:44] LABS: BASOPHILS % (AUTO) 0 % (0-10); EOSINOPHILS % (AUTO) 0 % (0-10); HEMATOCRIT 36 % (35-52); HEMOGLOBIN 11.7 G/DL (11.5-16.0); LYMPHOCYTES # (AUTO) 1.4 X 10^3 (1.0-4.0); LYMPHOCYTES % (AUTO) 5 % (12-44); MEAN CORPUSCULAR HEMOGLOBIN 29 PG (25-34); MEAN CORPUSCULAR HGB CONC 33 G/DL (32-36); MEAN CORPUSCULAR VOLUME 89 FL (80-99); MEAN PLATELET VOLUME 10.2 FL (7.4-10.4); MONOCYTES % (AUTO) 3 % (0-12); NEUTROPHILS % (AUTO) 92 % (42-75); PLATELET COUNT 435 10^3/uL (130-400); RED CELL DISTRIBUTION WIDTH 13.2 % (10.0-14.5)
[2019-06-19 05:55] LABS: WHITE BLOOD COUNT 30.4 10^3/uL (4.3-11.0)
--- NOTE | 2019-06-19 06:10 | NUR ---
Received critical lab result WBC = 30.4. Notified Dr. Kennedy, no new orders at this time.
[2019-06-19] MEDS: NS IV 1000 ML 1,000 ML IV SCH (06:58)
--- NOTE | 2019-06-19 07:35 | CONSULTATION REPORT ---
DATE OF SERVICE: ENT PROGRESS NOTE ROOM: 416. Follow up right neck swelling. HISTORY OF PRESENT ILLNESS: The patient has been receiving IV antibiotics and steroids. She has been on cefuroxime as well as 10 mg of IV Decadron q.6. Her white count today was elevated at 30. However, symptomatically she is much improved. She still has some mild tightness in her chest and a cough, but otherwise swelling in the right side of the neck is decreased. She has no neck pain. She is swallowing her food without difficulty and without pain. PHYSICAL EXAMINATION: Oropharynx was clear. No trismus present. NECK: The right neck swelling is markedly improved. She still has some mild swelling in the region of the tail of the parotid, but otherwise is clear. There is no abscess seen or palpated. No audible wheezing noted. IMPRESSION: 1. Severe right cervical lymphadenitis - resolving. 2. Elevated white count secondary to steroids. RECOMMENDATIONS: Findings were discussed with the patient. I believe elevation of her white count is secondary to her steroid use or the steroid dosages. She has a relatively lymphocytopenia consistent with that as well. Because clinically she is markedly improved; I believe she could go home as long as chest x-ray is normal. Given the marked swelling and given her cough, I would like to get a 2-view chest x-ray to make sure that there is no pneumonia or evidence of infection in the lungs. Otherwise, from my standpoint, she can be discharged. I left scripts for Ceftin for 10 days and in the chart as well as a 6-day prednisone taper. Return appointment in our office in 2 weeks would be recommended. If she has any redevelopment of symptoms, I have asked her to call and we will see her acutely. Job ID: [id number] DocumentID: [id number] Dictated Date: 06/19/2019 06:51:50 [employer]ite Installer Date: 06/19/2019 07:34:46 Dictated By: JEFF CASTILLO MD
--- NOTE | 2019-06-19 07:53 | Diagnostic Imaging Report ---
INDICATION: Cough and congestion. TECHNIQUE: Two view chest 7:45 AM CORRELATION STUDY: 02/07/2016 FINDINGS: The heart size, mediastinal configuration and pulmonary vasculature are within normal limits. The lungs are clear with no consolidating infiltrate. There is no significant pleural effusion or pneumothorax. Visualized osseous structures are unremarkable. IMPRESSION: 1. Negative for acute abnormality of the chest. Dictated by: Dictated on workstation # [id number]
[2019-06-19 08:00] VITALS: BP 126/78
[2019-06-19] MEDS ORDERED: ASPIRIN 81 MG CHEW (CHILDREN'S ASA) PO SCH (09:00)
[2019-06-19 10:49] VITALS: BP 126/78
[2019-06-19] MEDS ORDERED: PRD20T PO (10:51)
[2019-06-19] MEDS ORDERED: CEFU500T63 PO (10:51)
[2019-06-19] MEDS ORDERED: ASPI-586 PO (10:52)
--- NOTE | 2019-06-19 12:22 | Discharge Summary ---
Diagnosis/Chief Complaint Date of Admission Jun 17, 2019 at 18:12 Date of Discharge Jun 19, 2019 at 11:05 Discharge Date: Jun 19, 2019 Discharge Diagnosis 1. Cervical Lymphadenitis--improving 2. Recent Influenza B--improved 3. Leukocytosis due to steroids 4. Right Jugular Vein Constriction due to Lymphadenitis Reason Hospital Visit This is a 33 year old female who had influenza B approximately 1 week ago. She had lymph node enlargement this week and was seen and tested for strep which was negative. However, due to the significant lymphadenopathy and tonsillar exudate as well as cat exposure it was decided to give her a steroid shot and start her on zithromax. Despite the medications, she had worsening swelling of her lymph nodes with worsening pain so she was sent to the emergency room to be evaluated to rule out abscess. No abscess was found but she was found to have enlarged lymph nodes with one encroaching on the right jugular vein. It was decided to admit her for IV antibiotics, IV steroids and ENT evaluation. Discharge Summary Hospital Course Was the Problem List Reviewed?: Yes Hospital Course This is a 33 year old female who had influenza B approximately 1 week ago. She had lymph node enlargement this week and was seen and tested for strep which was negative. However, due to the significant lymphadenopathy and tonsillar exudate as well as cat exposure it was decided to give her a steroid shot and start her on zithromax. Despite the medications, she had worsening swelling of her lymph nodes with worsening pain so she was sent to the emergency room to be evaluated to rule out abscess. No abscess was found but she was found to have enlarged lymph nodes with one encroaching on the right jugular vein. It was decided to admit her for IV antibiotics, IV steroids and ENT evaluation. She was admitted to the medical floor and given IV cefuroxime, IV dexamethasone and continued with oral zithromax to cover for possible cat scratch. She was also started on aspirin due to compression of the right jugular vein by her lymphadenitis. By the second hospital day her lymph nodes had already decreased in size and she was feeling much better. By the day of discharge, her lymph nodes had gone down even more and she was feeling much improved. Her WBC count did elevated to 30,000 but that was felt to be steroid induced as clinically the patient was afebrile and much improved. She was having a cough so a CXR was ordered which was negative. She also has cat scratch titers and a TB ronal pending. It was decided she could be discharged home with oral cefuroxime and prednisone. She was evaluated by ENT, Dr. Hickey, and he was in agreement with discharge on oral antibiotics and steroids and he will see her in his office in 10 days. I will see her in by office in 5 days but she is instucted to rest and to call me if she is worsening. Labs Laboratory Tests 06/17/19 16:47: White Blood Count 26.6H, Platelet Count 510H, Neutrophils (%) (Auto) 81H, Neutrophils # (Auto) 21.5H, Monocytes # (Auto) 1.5H 06/18/19 05:08: White Blood Count 19.4H, Platelet Count 425H, Neutrophils (%) (Auto) 93H, Neutrophils # (Auto) 18.0H, Red Blood Count 4.30L, Lymphocytes (%) (Auto) 6L, Chloride Level 108H, Blood Urea Nitrogen 6L, Glucose Level 159H 06/18/19 10:15: 06/19/19 04:50: 06/19/19 04:58: White Blood Count 30.4*H, Red Blood Count 4.07L, Platelet Count 435H, Neutrophils (%) (Auto) 92H, Lymphocytes (%) (Auto) 5L, Neutrophils # (Auto) 28.0H Procedures None. Discharge Physical Examination Allergies: Coded Allergies: No Known Drug Allergies (Unverified , 06/30/13) Vitals & I&Os Vital Signs Date Time Temp Pulse Resp B/P (MAP) Pulse Ox O2 Delivery O2 Flow Rate FiO2 06/19/19 10:49 36.2 84 20 126/78 99 Room Air General Appearance: Alert, Oriented X3, Cooperative HEENT: Other (right neck lymphadenopathy much improved and much less tender) Respiratory: Clear to Auscultation Cardiovascular: Regular Rate Extremities: No Clubbing, No Cyanosis, No Edema Skin: No Rashes Psych/Mental Status: Mental Status NL, Mood NL Discharge Home Medications Reviewed and agree with Discharge Medication list on patient's Discharge Instruction sheet Instructions to Patient/Family Please see electronic discharge instructions given to patient. Clinical Quality Measures DVT/VTE Risk/Contraindication: Risk Factor Score Per Nursin RFS Level Per Nursing on Admit: 1=Low/No VTE PPX KATE GALLO DO Jun 19, 2019 12:21
== END 2019-06-19 11:05 | disposition home or self-care (01) | DRG 816 ==
LOC: EDUNIT# 16:22 → ER 16:24 → 4TH 18:12
PROVIDERS: ADMIT Family Medicine; ATTEND Family Medicine
DX: L04.0 Acute lymphadenitis of face, head and neck (principal); G40.909 Epilepsy, unspecified, not intractable, without status epilepticus; D72.810 Lymphocytopenia; T38.0X5A Adverse effect of glucocorticoids and synthetic analogues, initial encounter; J10.1 Influenza due to other identified influenza virus with other respiratory manifestations; Z87.891 Personal history of nicotine dependence
CPT/HCPCS: 36415; 70491; 71046; 80053; 84703; 85007; 85025; 85027; 86480; 86611

== ENCOUNTER → 2021-12-28 | Outpatient (CLI) | payer OTHER ==
[~2021-12-28] MED LIST changes: +ALPR0.5T7 PO; +ASPI-586 PO; +AZIT250T12 PO; +CEFU500T63 PO; +CHOL200025 PO; +ETHY1TAB PO; +MAGN500C15 PO; +PRD20T PO; +PRED10TA22 PO; +PS30T PO
--- NOTE | 2021-12-28 13:54 | Diagnostic Imaging Report ---
Indication: Routine screening. No prior mammograms are available for comparison. This a baseline study. 2-D and 3-D bilateral screening mammography was performed with CAD. CAD is utilized. The current study was also evaluated with a Computer Aided Detection (CAD) system. Both breasts are heterogeneously dense, limiting the sensitivity of mammography. No mass or malignant-appearing microcalcifications are seen. Axillae are unremarkable. IMPRESSION: BI-RADS Category 1 No mammographic features suspicious for malignancy are identified. ACR BI-RADS Category 1: Negative. Result letter will be mailed to the patient. Note: At least 10% of breast cancer is not imaged by mammography. Dictated by: Dictated on workstation # [id number]
== END ==
LOC: RAD 10:15
PROVIDERS: ATTEND Obstetrics & Gynecology
DX: Z12.31 Encounter for screening mammogram for malignant neoplasm of breast (principal)
CPT/HCPCS: 77063; 77067

== ENCOUNTER → 2022-01-02 | Outpatient (CLI) | payer OTHER ==
--- NOTE | 2022-01-02 16:13 | Diagnostic Imaging Report ---
PROCEDURE: MRI left joint lower extremity without contrast. TECHNIQUE: Multiplanar, multisequence non contrast-enhanced MRI of the left lower extremity was accomplished. INDICATION: Left ankle pain COMPARISONS: None available. FINDINGS: TENDONS: Achilles is intact without tendinosis. The peroneus longus longus and brevis tendons are normal. The posterior tibialis has mild tenosynovitis but is intact. Flexor hallucis longus and flexor digitorum longus are normal where visualized. Anterior tibialis, extensor hallucis longus and extensor digitorum longus are normal. LIGAMENTS: Anterior and posterior distal tibiofibular ligaments are intact. Anterior talofibular ligament is completely absent. The calcaneofibular and posterior talofibular ligaments are normal. Medial deltoid ligamentous complex is intact. Spring ligament is normal. BONES AND CARTILAGE: No osteochondral lesion of the talar dome. No fracture or stress fracture. The articular cartilage of the tibiotalar and posterior subtalar joints are normal. SOFT TISSUES: No evidence of plantar fasciitis. No abnormal soft tissue scar/fibrosis within the tarsal canal/sinus tarsi or tarsal tunnel. No ankle joint effusion. IMPRESSION: 1. Age-indeterminate complete tear of the anterior talofibular ligament. Remainder of the lateral collateral ligamentous complex is intact. 2. No high ankle sprain. 3. Mild tenosynovitis of the posterior tibialis without tendon tear. Dictated by: Dictated on workstation # [id number]
== END ==
LOC: RAD 13:15
PROVIDERS: ATTEND Podiatrist Foot & Ankle Surgery
DX: S93.492A Sprain of other ligament of left ankle, initial encounter (principal); M76.822 Posterior tibial tendinitis, left leg; G57.52 Tarsal tunnel syndrome, left lower limb; Z87.39 Personal history of other diseases of the musculoskeletal system and connective tissue; X58.XXXA Exposure to other specified factors, initial encounter
CPT/HCPCS: 73721

== ENCOUNTER → 2022-11-27 | Outpatient (CLI) | payer BC, OTHER ==
--- NOTE | 2022-11-27 17:09 | Diagnostic Imaging Report ---
PROCEDURE: Pelvic complete, transabdominal and transvaginal sonogram. Limited pelvic Doppler. TECHNIQUE: Multiple real-time grayscale images were obtained of the pelvis in various projections, transabdominally and transvaginally. Limited pelvic duplex images were obtained. HISTORY: Pelvic pain. COMPARISON: None available. FINDINGS: Uterus: The uterus is anteverted and measures 7.6 x 4.2 x 5.7 cm. There is a 3.1 cm intramural uterine fibroid. Endometrium: The endometrium is increased in thickness and measures 2.0 cm. There is no fluid within the endometrial cavity. Adnexa: The right ovary has a normal physiologic appearance. The left ovary is nonvisualized secondary to overlying bowel gas. The right ovary measures 3.4 x 2.0 x 3.4 cm. Other: There is no free fluid within the pelvis. IMPRESSION: 1. Abnormal thickening of the endometrium measuring up to 2.0 cm. Differential consideration could include endometrial hyperplasia or endometrial polyp, although neoplastic processes could have a similar appearance. 2. A 3.1 cm intramural uterine fibroid. Dictated by: Dictated on workstation # [id number]
== END ==
LOC: RAD 15:09
PROVIDERS: ATTEND Nurse Practitioner Women's Health
DX: D25.1 Intramural leiomyoma of uterus (principal); R93.89 Abnormal findings on diagnostic imaging of other specified body structures
CPT/HCPCS: 76830; 76856

== ENCOUNTER 2023-02-28 15:11 | Outpatient (RCR) | payer BC | END 2023-03-04 | disposition home or self-care (01) | PROVIDERS: ATTEND Physical Therapist | DX: M72.2 Plantar fascial fibromatosis (principal) ==

== ENCOUNTER 2023-03-21 15:16 | Outpatient (RCR) | payer BC | END 2023-04-03 | disposition home or self-care (01) | PROVIDERS: ATTEND Physical Therapist | DX: M72.2 Plantar fascial fibromatosis (principal); M25.551 Pain in right hip; M25.552 Pain in left hip; M25.561 Pain in right knee; M25.562 Pain in left knee ==